=== PATIENT | female | born 1945 | race Caucasian/White ===

== ENCOUNTER 2024-02-06 16:27 | Emergency (ER) | payer MEDICARE, SELFPAY ==
[2024-02-06 16:29] VITALS: BP 114/90; PULSE 75; RESP 18; TEMP 35.5; O2SAT 97; BMI 24.3
--- NOTE | 2024-02-06 16:48 | EX.ED.DYSGE1 ---
HPI History of Present Illness Chief Complaint: Palpitations Informant: patient and spouse/S.O. Onset/Context/Timing Onset: Today Context: Sudden Onset Timing: Continuous Worsened by: Nothing Relieved by: Nothing Narrative Narrative: Patient had a colonoscopy done today at [facility] in [place]. Patient was told she was in atrial fibrillation and needed to go to the emergency department. Patient denies any prior history of atrial fibrillation. Patient denies any symptoms. Patient states she feels fine. Patient states she was told she needed an EKG and a blood test. Patient denies any chest pain or palpitations. Patient denies any shortness of breath or cough. Patient denies any nausea or vomiting. Patient denies any lightheadedness or dizziness. Patient states she does not know when she went into atrial fibrillation. Patient thinks that they told her her heart rhythm was irregular during the procedure. [facility] Medical History (Updated 02/06/24 @ 20:[address] Esvin Mendoza DO) Hypertension Allergy/AdvReac Type Severity Reaction Status Date / Time No Known Allergies Allergy Verified 02/06/24 16:28 Surgical History (Updated 02/06/24 @ 16:[address] Esvin Mendoza DO) Hx of total knee replacement Social History Smoking Status: Never smoker ROS ROS ED Constitutional Constitutional ED: Denies chills or fever(s) Eyes Eyes: Denies blurry vision or change in vision ENT ENT ED: Denies rhinorrhea or sore throat Cardiovascular Cardiovascular: Denies chest pain or palpitations Respiratory/Chest Respiratory/Chest: Denies cough or dyspnea Gastrointestinal Gastrointestinal: Denies nausea or vomiting Genitourinary Genitourinary ED: Denies dysuria or hematuria Musculoskeletal Musculoskeletal: Denies back pain or neck pain Integumentary Denies abscess or rash Neurologic Neurologic: Denies headache(s) or weakness Allergic/Immunologic Allergic/Immunologic ED: Denies mouth swelling or urticaria EXAM Physical Exam Const Vital Signs: 02/06/24 16:29 02/06/24 17:12 02/06/24 17:12 Temperature 96 F L Temperature Source Temporal Pulse Rate 75 Respiratory Rate 18 Respiratory Effort Normal Non-Labored Blood Pressure 114/90 H Blood Pressure Mean 98 Pulse Ox 97 96 Oxygen Delivery Method Room Air Room Air 02/06/24 18:28 Temperature Temperature Source Pulse Rate 68 Respiratory Rate Respiratory Effort Blood Pressure 107/72 Blood Pressure Mean 83 Pulse Ox Oxygen Delivery Method Positive well nourished and well developed General Appearance ED: well developed and NAD HEENT Reports moist mucous membranes Neck supple and no JVD Resp normal respiratory effort and clear to auscultation bilaterally Cardio regular rate Rhythm: abnormal rhythm irregularly irregular GI non-tender and non-distended Palpation: soft Extremity normal to inspection Neuro oriented x3, CN's II-XII intact bilaterally and no sensory deficits noted Sensorium / Orientation: alert Motor Exam: strength 5/5 throughout MDM MDM MDM Narrative Medical decision making narrative: Differential diagnose includes cardiac dysrhythmia, cardiac ischemia, electrolyte abnormality, dehydration, and viral illness. EKG will be obtained to assess for cardiac dysrhythmia and cardiac ischemia. Chest x-ray will be obtained to assess for cardiomegaly and congestive heart failure. CBC will be obtained to assess for leukocytosis and anemia. Basic metabolic profile will be obtained to assess for electrolyte abnormality and renal function. High-sensitivity troponin will be obtained to assess for cardiac ischemia. 2-hour repeat high-sensitivity troponin will be obtained to assess for ongoing cardiac ischemia. History & Record Review Additional record(s) reviewed:: No prior records and Other (Patient came with rhythm strips from the colonoscopy procedure which all showed atrial fibrillation.) Lab Data Attestation: I reviewed the patient's lab results. Lab results narrative: CBC was reviewed and was within normal limits. PT with INR and PTT were reviewed with her,. Pro time was 15.6 and INR was 1.2. PTT was normal. Basic metabolic profile was reviewed. Potassium slightly low at 3.2. Initial high-sensitivity troponin was reviewed and was normal at 10. 2-hour repeat high-sensitivity troponin was reviewed and was normal at 7. Labs: Laboratory Results - last 24 hr 02/06/24 02/06/24 16:52 19:05 WBC 7.4 RBC 4.22 Hgb 12.1 Hct 36.6 L MCV 86.7 MCH 28.7 MCHC 33.1 RDW Std Deviation 45.6 H RDW Coeff of Chavez 14.3 Plt Count 203 MPV 12.0 Immature Gran % (Auto) 0.300 Neut % (Auto) 76.1 H Lymph % (Auto) 13.3 L [place] % (Auto) 9.3 Eos % (Auto) 0.5 Baso % (Auto) 0.5 Absolute Neuts (auto) 5.7 Absolute Lymphs (auto) 0.99 Nucleated RBC % 0 PT 15.6 H INR 1.2 APTT 30.9 Sodium 137 Potassium 3.2 L Chloride 104 Carbon Dioxide 28.0 Anion Gap 5 BUN 13 Creatinine 1.01 Estim Creat Clear Calc 44.64 Est GFR (MDRD) Af Amer 68 Est GFR (MDRD) Non-Af 56 L BUN/Creatinine Ratio 12.9 Glucose 114 H Calcium 8.8 Troponin I High Sens 10 7 Radiography Chest X-Ray - ED: 2 View, Read by ED Physician, Read by Radiologist, No Acute Disease and Cardiomegaly Diagnostic Testing: Clinical Impression(s) from Imaging Studies Chest X-Ray 02/06/24 17:10 IMPRESSION: Cardiomegaly. Electronically Signed: Theresa Bryant MD at 17:31 EST , PA and lateral chest x-ray was obtained. There are 2 views. On my independent interpretation, lung salazar are clear. There is cardiomegaly. Bony thorax is normal. There is no acute process noted. Radiologist also interpreted the x-ray and agrees. EKG Initial EKG: Attestation: I personally reviewed and interpreted this EKG as follows: Interpretation: Atrial Fibrillation (70), RBBB and Non-Specific ST Changes Comments: EKG was obtained. On my independent interpretation, it shows atrial fibrillation with a rate of 70. QRS interval was slightly prolonged at 126 ms. QTc 473 ms. [place] was normal. There is a right bundle branch block pattern noted. There are nonspecific ST-T wave changes noted. There are no prior EKGs available for comparison. Prior EKG tracings: not available for review Prior: No Prior Treatment and Re-Evaluation :: Since the patient is asymptomatic and she does not know when she possibly started having the atrial fibrillation, I do not want to cardiovert the patient. Case was discussed with Dr. Abbott from cardiology. He recommended having the patient follow-up as an outpatient with her primary care physician. He did not want to start the patient on anticoagulation due to the biopsies from her colonoscopy. Patient was instructed to follow-up with her primary care physician in 3 to 5 days. Patient was instructed to return if worse in any way. Patient understood and was agreeable with the plan. All questions were answered. Discharge Plan Triage Chief Complaint: Palpitations ED Provider: Esvin Mendoza Dx/Rx/DC Orders Clinical Impression: Atrial fibrillation, Hypertension Instructions: ED Hypertension, Established Primary Care Provider: [facility],Out of Referrals: NOT,DEFINED [Non-Staff] - [facility],Out of [Primary Care Provider] - 3-5 Days Print Language: [place] Disposition Disposition: Home, Self Care
--- NOTE | 2024-02-06 16:56 | EKG12_ITS ---
Test Reason : Blood Pressure : */* mmHG Vent. Rate : 70 BPM Atrial Rate : * BPM P-R Int : * ms QRS Dur : 126 ms QT Int : 438 ms P-R-T Axes : * 7 -33 degrees QTcB Int : 473 ms Atrial fibrillation Right bundle branch block Cannot rule out Inferior infarct , age undetermined Abnormal ECG Confirmed by SAPNA AMBRIZ ([id number]), movie editor KAYA SWANN ([id number]) on 02/08/2024 11:56:47 AM Referred By: Esvin Mendoza Confirmed By: SAPNA AMBRIZ
--- NOTE | 2024-02-06 17:10 | RAD_ITS ---
INDICATION: chest pain EXAMINATION/TECHNIQUE: X-RAY - XR Chest 2 Views COMPARISON: No relevant prior comparison study available FINDINGS: LINES/DEVICES: None. LUNGS: No consolidation, edema or effusion. No pneumothorax. MEDIASTINUM AND CARDIOVASCULAR STRUCTURES: There is cardiomegaly. Central airways and mediastinal contour are unremarkable. BONES AND SOFT TISSUES: Unremarkable. RAD/Chest PA and Lateral IMPRESSION: Cardiomegaly. Electronically Signed: Theresa Bryant MD at 17:31 EST ,
[2024-02-06 17:12] VITALS: O2SAT 96
[2024-02-06 17:16] LABS: Absolute Lymphocyte Count 0.99 X10^3/uL (0.83-4.51); Absolute Neutrophil Count 5.7 X10^3/uL (2.0-7.7); Basophil# 0.04 X10^3/uL; Basophil% 0.5 % (0-1); Eosinophil# 0.04 X10^3/uL; Eosinophils% 0.5 % (0-5); Hematocrit 36.6 % (37-47); Hemoglobin 12.1 g/dL (12.0-15.0); Lymphocyte # 0.99 X10^3/ul (0.83-4.51); Lymphocyte % 13.3 % (19-41); Mean Corp Hgb Conc 33.1 g/dL (32-36); Mean Corpuscular Hgb 28.7 pg (27.0-32.0); Mean Corpuscular Volume 86.7 fL (81-99); Monocyte# 0.69 X10^3/uL; Monocyte% 9.3 % (0-10); NRBC Flagged by Analyzer 0 % (0-5); Neutrophil # 5.65 X10^3/uL (2.7-7.7); Neutrophil % 76.1 % (47-70); Platelet Count 203 K/mm3 (150-450); RBC Distribution Width CV 14.3 % (11.6-14.6); RBC Distribution Width SD 45.6 fl (35.1-43.9); Red Blood Count 4.22 M/mm3 (4.2-5.4); White Blood Count 7.4 K/mm3 (4.4-11.0)
[2024-02-06 17:25] LABS: International Normalized Ratio 1.2; Prothrombin Time (Protime)PT. 15.6 SECONDS (11.7-14.9)
[2024-02-06 17:26] LABS: Partial Thromboplast Time 30.9 Seconds (24.1-36.2)
[2024-02-06 17:32] LABS: Anion Gap 5 (5-15); BUN 13 mg/dL (7-18); BUN/Creat Ratio 12.9 RATIO (10-20); Calcium,Total 8.8 mg/dL (8.5-10.1); Chloride 104 mmol/L (98-107); Creatinine, Serum 1.01 mg/dL (0.55-1.02); EST Glomerular Filtration Rate 56 mL/min (>60); Est Glom Filt Rate - Afr Amer 68 mL/min (>60); Estimated Creatinine Clearance 44.64 ml/min; Glucose 114 mg/dL (74-106); Potassium 3.2 mmol/L (3.5-5.1); Sodium Level 137 mmol/L (136-145); Troponin-I HS (w/2H Reflex) 10 pg/mL (3.0-54.0)
[2024-02-06] MEDS: Potassium Chloride Oral Tablet 20 MEQ 40 MEQ PO (18:01)
[2024-02-06 18:28] VITALS: BP 107/72; PULSE 68
[2024-02-06 19:06] LABS: Reflex Troponin-HS? (from REC) Y
[2024-02-06 19:38] LABS: Troponin-I HS 7 pg/mL (3.0-54.0)
[2024-02-06 20:00] VITALS: BP 130/90; PULSE 78; RESP 20; O2SAT 96
[2024-02-06 21:06] VITALS: BP 124/74; PULSE 71; RESP 16; TEMP 36.8; O2SAT 97
== END 2024-02-06 21:07 | disposition home or self-care (01) ==
PROVIDERS: Emergency Provider Emergency Medicine; Referring Provider Emergency Medicine; Visit Provider Emergency Medicine
DX: R00.2 Palpitations (principal); I48.91 Unspecified atrial fibrillation; I10 Essential (primary) hypertension; Z96.659 Presence of unspecified artificial knee joint
CPT/HCPCS: 71046; 80048; 84484; 85025; 85610; 85730; 93005; 99284; J7040; A4216

== ENCOUNTER 2024-09-10 15:39 | Emergency (ER) | payer MEDICARE, SELFPAY ==
[2024-09-10] VITALS (16 sets, daily range): BP systolic 100–143; BP diastolic 50–101; PULSE 69–100; RESP 12–26; TEMP 36.9; O2SAT 95–100; BMI 25.0
--- NOTE | 2024-09-10 15:52 | CT_ITS ---
PROCEDURE: CTA CHEST W/WO CONTRAST 09/10/2024 REASON FOR EXAM: ASCENDING AORTIC ANEURYSM per echocardiogram today. Patient report, no chest pain or shortness of breath. History of atrial fibrillation and hypertension. TECHNIQUE: CTA CHEST W/WO CONTRAST Multiplanar Sagittal and Coronal images were obtained. 3D post processing was performed CONTRAST: Isovue 370 VOLUME: 100 mL One or more dose reduction techniques were used (e.g., Automated exposure control, adjustment of the mA and/or kV according to patient size, use of iterative reconstruction technique). RADIATION DOSE SUMMARY: DLP: 270 mGycm COMPARISON: Chest radiograph 02/06/24. FINDINGS: Hardware: None. Lymph nodes: No axillary, mediastinal or hilar lymphadenopathy. Heart: Dilation of the right and left atria. No pericardial effusion. There is a Marble type A limited intimal tear of the ascending thoracic aorta measuring approximately 5.1 cm on coronal imaging. There is no aortic root involvement. The coronary arteries and aortic arch vessels are grossly well-perfused. Visualization of intramural hematoma is limited without noncontrast imaging. Lungs and Airways: The central airways are patent. Bibasilar atelectasis, [id number]. No pleural effusion or pneumothorax. Upper Abdomen: Small hiatal hernia. Large calcified stones within the gallbladder. Bilateral renal cysts. Mild ectasia of the visualized branches of the abdominal aorta without aneurysm or filling defect. Bones: Thoracic spondylosis. CT/CTA Chest W/WO Contrast IMPRESSION: 1. Limited visualization due to imaging technique. No obvious acute intrathora cic finding. 2. Chronic appearing Leno type A limited intimal tear of the ascending thor acic aorta, given lack of patient's symptoms, prior chest radiograph imaging appearance and dilation of the atria. Continue routine surveillance. Reading Location: [id number]
--- NOTE | 2024-09-10 15:52 | ED.RN ---
This Rn walked into Dr. office after getting pt. in room and placing her on monitor. I showed Dr. Horvath her chart and stated Dr. piña wants this pt. evaluated for potentialk dissection, she needs to be seen RONALDO.
[2024-09-10] MEDS: 0.9% Normal Saline (1000mL) 1,000 ML 1000 ML IV (15:59)
--- NOTE | 2024-09-10 16:10 | ED.VIS.CHEST ---
HPI History of Present Illness Chief Complaint: Chest Other Narrative Narrative: Chief complaint and HPI: Asymptomatic aortic aneurysm. 79-year-old female with past medical history of HTN, atrial fibrillation on Eliquis presents from cardiology office for asymptomatic aortic aneurysm. Patient had a follow-up appointment with cardiology today for her atrial fibrillation. She had an echocardiogram that showed normal LV size with an EF of 55%. The ascending aorta is severely dilated at 7 cm. Systems Librarian called [facility] cardiothoracic surgery who recommended transfer for repair. Patient denies any fever, chills, shortness of breath, abdominal pain, nausea, vomiting. She denies any history of tobacco abuse. Review of systems: See HPI Medications: As listed on the chart Allergies: As listed on the chart PFSH: Per chart Vital signs: As listed on the chart. Reviewed. Physical exam: Gen: A&O x3, NAD Head: Normocephalic, atraumatic Eyes: No sclera icterus, conjunctiva clear ENT: Moist mucous membranes Neck: Trachea midline, No JVD CV: Regular rate, irregular rhythm, no murmurs, no peripheral edema Resp: Lungs CTA BL, no w/r/c GI: Abd soft, non-distended, non-tender, no r/r/g Musc: Full ROM, no deformity Skin: Warm, dry Neuro: Alert, oriented, grossly intact, sensation intact Psych: Cooperative, appropriate mood and affect [facility] Medical History (Updated 08/01/24 @ 10:[address] Pete Abbott MD) Atrial fibrillation Cardiomegaly Panic attack SUBHA (generalized anxiety disorder) Depression Arthritis RBBB Hypertension Home Medications ?Medication ?Instructions ?Recorded ?Last Taken ?Type alprazolam 2 mg tablet 2 mg PO BID 07/07/24 Unknown History apixaban 5 mg tablet (Eliquis) 5 mg PO BID 07/07/24 Unknown History cholecalciferol (vitamin D3) 50 50 mcg PO QDAY 07/07/24 Unknown History mcg (2,000 unit) capsule fluticasone propionate 50 1 spray intranasal DAILY 07/07/24 Unknown History mcg/actuation nasal spray,suspension paroxetine HCl 10 mg tablet 10 mg PO DAILY 07/07/24 Unknown History trandolapril 4 mg tablet 4 mg PO DAILY 07/07/24 Unknown History verapamil 240 mg tablet,extended 240 mg PO BID 07/07/24 Unknown History release Allergy/AdvReac Type Severity Reaction Status Date / Time No Known Allergies Allergy Verified 09/10/24 15:44 Surgical History Hx of total knee replacement Social History Smoking Status: Never smoker alcohol intake: never substance use type: does not use EXAM Physical Exam Const Vital Signs: 09/10/24 15:39 09/10/24 15:39 09/10/24 16:09 Temperature 98.4 F Temperature Source Temporal Pulse Rate 69 88 Respiratory Rate 15 14 Respiratory Effort Normal Non-Labored Blood Pressure 136/93 H 138/93 H Blood Pressure Mean 107 108 Pulse Ox 97 98 Oxygen Delivery Method Room Air Room Air 09/10/24 16:30 09/10/24 17:00 09/10/24 17:30 Temperature Temperature Source Pulse Rate 90 97 99 Respiratory Rate 26 H 15 16 Respiratory Effort Blood Pressure 143/101 H 134/89 H Blood Pressure Mean 115 104 Pulse Ox 100 95 96 Oxygen Delivery Method 09/10/24 18:00 09/10/24 18:30 09/10/24 19:00 Temperature Temperature Source Pulse Rate 100 95 90 Respiratory Rate 23 H 22 H 13 Respiratory Effort Blood Pressure 119/96 H 122/88 H 128/77 H Blood Pressure Mean 103 99 94 Pulse Ox 97 95 95 Oxygen Delivery Method Room Air Room Air 09/10/24 19:30 Temperature Temperature Source Pulse Rate 90 Respiratory Rate 12 Respiratory Effort Blood Pressure 126/90 H Blood Pressure Mean 102 Pulse Ox 95 Oxygen Delivery Method Room Air MDM MDM MDM Narrative Medical decision making narrative: 79-year-old female with past medical history of HTN, atrial fibrillation on Eliquis presents from cardiology office for asymptomatic aortic aneurysm. Patient had a follow-up appointment with cardiology today for her atrial fibrillation. She had an echocardiogram that showed normal LV size with an EF of 55%. The ascending aorta is severely dilated at 7 cm. Systems Librarian called [facility] cardiothoracic surgery who recommended transfer for repair. I personally reviewed the echocardiogram. I personally spoke to Dr. Abbott, who is the private secretary that saw the patient in office today. Basic labs ordered with coagulation studies and CTA chest to better assess aneurysm. [facility] transfer line contacted for transfer. Differential diagnosis includes but is not limited to asymptomatic ascending aneurysm, aneurysm dissection. EKG reviewed see below. CBC without leukocytosis or anemia. Platelets unremarkable. INR unremarkable. BMP unremarkable. CTA chest pending. I spoke with the cardiovascular medicine team at [facility]. Dr. Matias accepted admission. Patient will be transferred once bed is available. CTA chest was personally reviewed by myself as well as cardiology Dr. Abbott concern is for dissection. I did try to personally call the radiologist to read the imaging as well as get his opinion however I was unable to get a hold of him. I reached out to our radiology department. They tried to reach out to radiologist as well. Given concern for dissection, [facility] transfer line was recontacted and patient was discussed with cardiothoracic surgeon and critical care team. 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 No need for flight team. Patient will remain a level 1 transfer per them. Monitor for symptoms and blood pressure. Patient was updated of the results as well as the family. CTA chest shows dilation of the right and left atria. No pericardial effusion. There is a Roslyn type A limited intimal tear of the ascending thoracic aorta measuring approximately 5.1 cm. There is no aortic root involvement. Coronary arteries grossly well-perfused. Chronic appearing. Patient will be monitored closely in our emergency department until bed is obtained. EKG: Interpreted by me/EM physician: EKG shows atrial fibrillation with known right bundle branch block. Heart rate 74. Impression: 1. 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 measuring approximately 5.1 cm Lab Data Labs: Laboratory Results - last 24 hr 09/10/24 15:44 WBC 8.4 RBC 5.00 Hgb 14.3 Hct 42.9 MCV 85.8 MCH 28.6 MCHC 33.3 RDW Std Deviation 44.6 H RDW Coeff of Chavez 14.2 Plt Count 221 MPV 12.4 H Immature Gran % (Auto) 0.400 Neut % (Auto) 72.0 H Lymph % (Auto) 17.4 L [place] % (Auto) 8.6 Eos % (Auto) 1.1 Baso % (Auto) 0.5 Absolute Neuts (auto) 6.1 Absolute Lymphs (auto) 1.47 Nucleated RBC % 0 PT 16.4 H INR 1.3 APTT 34.5 Sodium 138 Potassium 4.4 Chloride 101 Carbon Dioxide 25.7 Anion Gap 11 BUN 18 Creatinine 0.98 Estim Creat Clear Calc 45.27 L Est GFR (MDRD) Non-Af 59 L BUN/Creatinine Ratio 18.7 Glucose 89 Calcium 9.4 Radiography Diagnostic Testing: Clinical Impression(s) from Imaging Studies Chest CTA 09/10/24 15:52 IMPRESSION: 1. Limited visualization due to imaging technique. No obvious acute intrathoracic finding. 2. Chronic appearing Roslyn type A limited intimal tear of the ascending thoracic aorta, given lack of patient's symptoms, prior chest radiograph imaging appearance and dilation of the atria. Continue routine surveillance. Reading Location: [id number] Discharge Plan Triage Chief Complaint: Chest Other ED Provider: Maverick Mckeon Dx/Rx/DC Orders Prescriptions: No Action alprazolam 2 mg tablet 2 mg PO BID Eliquis 5 mg tablet 5 mg PO BID fluticasone propionate 50 mcg/actuation spray,suspension 1 spray intranasal DAILY paroxetine HCl 10 mg tablet 10 mg PO DAILY trandolapril 4 mg tablet 4 mg PO DAILY verapamil 240 mg tablet extended release 240 mg PO BID cholecalciferol (vitamin D3) 50 mcg (2,000 unit) capsule 50 mcg PO QDAY Primary Care Provider: Monica Mckeon Referrals: Monica Mckeon MD [Primary Care Provider] - Print Language: Georgian
[2024-09-10 16:31] LABS: Absolute Lymphocyte Count 1.47 X10^3/uL (0.83-4.51); Absolute Neutrophil Count 6.1 X10^3/uL (2.0-7.7); Basophil# 0.04 X10^3/uL; Basophil% 0.5 % (0-1); Eosinophil# 0.09 X10^3/uL; Eosinophils% 1.1 % (0-5); Hematocrit 42.9 % (37-47); Hemoglobin 14.3 g/dL (12.0-15.0); Lymphocyte # 1.47 X10^3/ul (0.83-4.51); Lymphocyte % 17.4 % (19-41); Mean Corp Hgb Conc 33.3 g/dL (32-36); Mean Corpuscular Hgb 28.6 pg (27.0-32.0); Mean Corpuscular Volume 85.8 fL (81-99); Mean Platelet Vol. 12.4 fl (6.2-12.0); Monocyte# 0.73 X10^3/uL; Monocyte% 8.6 % (0-10); NRBC Flagged by Analyzer 0 % (0-5); Neutrophil # 6.08 X10^3/uL (2.7-7.7); Platelet Count 221 K/mm3 (150-450); RBC Distribution Width CV 14.2 % (11.6-14.6); RBC Distribution Width SD 44.6 fl (35.1-43.9); White Blood Count 8.4 K/mm3 (4.4-11.0)
[2024-09-10 16:52] LABS: Anion Gap 11 (5-15); BUN 18 mg/dL (4-19); BUN/Creat Ratio 18.7 RATIO (10-20); Calcium,Total 9.4 mg/dL (7.6-11.0); Carbon Dioxide 25.7 mmol/L (21.0-32.0); Chloride 101 mmol/L (98-108); Creatinine, Serum 0.98 mg/dL (0.70-1.20); EST Glomerular Filtration Rate 59 (>60); Estimated Creatinine Clearance 45.27 ml/min (50-250); Glucose 89 mg/dL (70-99); Potassium 4.4 mmol/L (3.3-5.1); Sodium Level 138 mmol/L (133-145)
[2024-09-10 16:55] LABS: International Normalized Ratio 1.3; Prothrombin Time (Protime)PT. 16.4 SECONDS (11.7-14.9)
[2024-09-10 16:56] LABS: Partial Thromboplast Time 34.5 Seconds (24.1-36.2)
[2024-09-10] MEDS: Lorazepam 2 MG/ML WCH Syringe 0.5 MG IV (20:34)
--- NOTE | 2024-09-10 20:50 | ED.RN ---
[facility] called, brief report given, per Dr. Horvath pt is to go critical care transport, [facility] notified of same, they will call back with ETA and bed assignment.
--- NOTE | 2024-09-10 23:01 | ED.RN ---
report called to Demetra BHATIA @ [facility] [place]
== END 2024-09-10 22:58 | disposition short-term general hospital (02) ==
PROVIDERS: Emergency Provider Surgery; PCP Family Medicine; Visit Provider Surgery
DX: I77.810 Thoracic aortic ectasia (principal); I48.91 Unspecified atrial fibrillation; I10 Essential (primary) hypertension; Z79.01 Long term (current) use of anticoagulants; F32.A Depression, unspecified; F41.1 Generalized anxiety disorder
CPT/HCPCS: 71275; 80048; 85025; 85610; 85730; 93005; 96361; 96374; 99285; Q9967; A4216

== ENCOUNTER → 2024-09-10 | Outpatient (CLI) | payer MEDICARE, SELFPAY ==
--- NOTE | 2024-09-10 13:39 | ECHOD_ITS ---
Reason For Study : New A fib Left Ventricle Normal LV size. The left ventricular ejection fraction is 55 %. No regional wall motion abnormalities noted. Right Ventricle Normal RV size. Normal systolic function. Atria The left atrium is severely enlarged. The right atrium is mildly enlarged. Tricuspid Valve Normal tricuspid valve. Mild (1+) tricuspid valve insufficiency. Pulmonary artery systolic pressure is 35 mmHg. Aortic Valve Trisinus/trileaflet aortic valve. Mild (1+) aortic valve insufficiency. Pulmonic Valve Normal pulmonic valve. Great Vessels Normal aortic root. The sinus of valsalva is normal size. The ascending aorta is severely dilated. The ascending aorta is dilated, measuring 7 cm cm. The pulmonary artery is normal size. Inferior vena cava collapse with respiration. Pericardium/Pleural No pericardial effusion. MMode/2D Measurements & Calculations LVIDd: 3.5 cm IVSd: 1.1 cm Ao root diam: 6.1 cm LVIDs: 2.3 cm LVPWd: 1.1 cm RVDd: 4.3 cm FS: 34.6 % asc Aorta Diam: 6.9 cm LAV(MOD-bp): 98.4 ml LVAd ap4: 21.9 cm2 LAV(MOD-bp) Indexed: 54.2 ml/m2 LVLd ap4: 7.2 cm LAV(MOD-sp2): 94.8 ml EDV(MOD-sp4): 57.4 ml LAV(MOD-sp4): 91.8 ml EDV(sp4-el): 56.8 ml LVAs ap4: 14.3 cm2 LVLs ap4: 6.3 cm ESV(MOD-sp4): 28.6 ml ESV(sp4-el): 27.4 ml EF(MOD-sp4): 50.2 % EF(sp4-el): 51.9 % SV(MOD-sp4): 28.8 ml SV(MOD-sp2): 28.6 ml LVAd ap2: 21.1 cm2 LVLd ap2: 6.4 cm SI(MOD-sp4): 15.9 ml/m2 SI(MOD-sp2): 15.8 ml/m2 EDV(MOD-sp2): 61.1 ml EDV(sp2-el): 59.1 ml LVAs ap2: 15.3 cm2 LVLs ap2: 5.9 cm ESV(MOD-sp2): 32.4 ml ESV(sp2-el): 33.2 ml EF(MOD-sp2): 46.9 % SV(sp4-el): 29.5 ml LA A4 area: 28.6 cm2 RA A4 area: 23.4 cm2 TAPSE: 2.2 cm Doppler Measurements & Calculations MV E max nelson: 114.6 cm/sec Ao V2 max: 150.1 cm/sec AI max nelson: 422.8 cm/sec Ao max P.0 mmHg AI max P.5 mmHg Ao V2 mean: 107.9 cm/sec Ao mean P.3 mmHg AI dec slope: 212.5 cm/sec2 Ao V2 VTI: 28.9 cm AI P1/2t: 582.7 msec AV (velocity ratio): 0.54 LV V1 max: 83.8 cm/sec PA V2 max: 73.8 cm/sec TR max nelson: 281.8 cm/sec LV V1 max P.8 mmHg TR max P.8 mmHg LV V1 mean P.5 mmHg LV V1 mean: 57.6 cm/sec LV V1 VTI: 15.6 cm ECHO/Echo Complete Interpretation Summary The left ventricular ejection fraction is 55 %. Normal LV size. Normal RV size. Normal systolic function. The ascending aorta is severely dilated. The ascending aorta is dilated, measuring 7 cm cm. Trisinus/trileaflet aortic valve. Mild (1+) aortic valve insufficiency. The left atrium is severely enlarged. The right atrium is mildly enlarged. Ordering Physician: Pete Abbott Referring Physician: Pete Abbott Performed By: Maverick Reid RCS
== END | disposition home or self-care (01) ==
PROVIDERS: PCP Family Medicine; Referring Provider Internal Medicine Cardiovascular Disease; Visit Provider Internal Medicine Cardiovascular Disease
DX: I48.91 Unspecified atrial fibrillation (principal); R94.31 Abnormal electrocardiogram [ECG] [EKG]; R06.02 Shortness of breath
CPT/HCPCS: 93306

== ENCOUNTER → 2024-11-12 | Outpatient (CLI) | payer MEDICARE, SELFPAY ==
--- NOTE | 2024-11-12 14:03 | CR.HP_ITS ---
CR - History & Physical General Arrival date:: 11/12/24 Arrival time:: 13:50 Date of Referral:: 10/31/24 Date of CR Evaluation:: 11/12/24 Referring Physician: Dr Abbott Primary Diagnosis: Valve Repair History of Present Cardiac Event Onset Date Current stable Angina Pectoris:: No Acute Myocardial Infarction within 12 months:: No Coronary Artery Bypass Graft:: No Heart valve replacement or repair:: Yes PTCA or coronary stenting:: No Heart or Heart-Lung Transplant:: No Heart Failure EF <35%:: No Type of Symptoms:: Valve Repair Medications Ambulatory Orders ?Medication ?Instructions ?Recorded apixaban 5 mg tablet (Eliquis) 5 mg PO BID 07/07/24 cholecalciferol (vitamin D3) 50 50 mcg PO QDAY 5 mcg (2,000 unit) capsule fluticasone propionate 50 1 spray intranasal DAILY mcg/actuation nasal spray,suspension paroxetine HCl 10 mg tablet 10 mg PO DAILY 07/07/24 alprazolam 2 mg tablet 0.5 mg PO BID PRN 10/31/24 metoprolol succinate 25 mg 25 mg PO QDAY 10/31/24 tablet,extended release 24 hr Allergies Allergies No Known Allergies Allergy (Verified 10/31/24 11:23) Sleep Disorder Evaluation Hx of Sleep Apnea: No Do you snore loudly (louder than talking or can be heard through closed doors)?: No Do you often feel tired/ fatigued/ sleepy during daytime?: No Has anyone observed you stop breathing during sleep?: No History of Hypertension (for STOP score): Yes STOP Results: Negative Advance Directives Advanced Directives Advance Directives: Yes Living Will Living Will: Yes Power of Service Establishment Attendant, Durable Power of Service Establishment Attendant for Healthcare: Yes Able to identify name of POA?: Yes Name of Medical Power of Service Establishment Attendant: Allyn (daughter) Information Education/Medical Records Advanced Care Planning Booklet Provided: Patient Declined Advance Directives on File: No Request family telephone claims representative bring in a Copy: Yes Reason not requested: Family not present Advanced Directives Advanced Directives Do you have a Healthcare Power of Service Establishment Attendant?: Yes Living Will: Yes Advance Directives on File: No Past Medical History Covid-19 Screening Physicial Symptoms Fever: No Unexplained muscle aches: No Current respiratory symptoms: No Upper respiratory infections symptoms: No Gastro-intestinal symptoms: No Icg-Uaqh-Sacjfc symptoms: No Other Clinical Concerns Has tested positive for COVID-19 in last 30 days: No Exposure Risk Had contact w/person w/symptoms or Covid-19 (+) last 14 days: No Has High Risk Exposures ID'd by Health dept/Inf Control team: No Pertinent Comorbidities 65 years or older:: Yes Lives in Assisted Living facility:: No Has a chronic lung disease or moderate to severe asthma:: No Has a serious heart condition:: No Immunocompromised:: No Severely obese (Body Mass Index of 40 or higher):: No Diabetic:: No Has chronic kidney disease undergoing dialysis:: No Has liver disease:: No Past Medical Illness Past Medical History (Updated 10/31/24 @ 11:53 by Yelena Grewal RN) Aortic aneurysm without rupture I71.9 Atrial fibrillation I48.91 Cardiomegaly I51.7 Panic attack F41.0 SUBHA (generalized anxiety disorder) F41.1 Depression F32.A Arthritis M19.90 RBBB I45.10 Hypertension I10 Past Surgical History Past Surgical History (Updated 10/31/24 @ 14:[address] 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 Bilateral Review of Systems Pain Is Patient Pain Free?: Yes Pain Location: none Risk Factor Assessment Vital Signs Respiratory Rate: 18 Pulse Ox: 96 Blood Pressure: 126/78 Nailbeds:: Normal Pulse Pulse Rate: 74 Pulse Rhythm: Irregular (known A fib) Diabetes Nutrition Referral for Diabetes: No Obesity Height: 5 ft 7.5 in Weight:: 146 lb Weight in Pounds: 146.0 lbs Weight Source: Stated by Patient Body Mass Index (BMI): 22.5 Risk Stratification Risk Guidelines: Lowest Risk: Risk Factor for Hypertension and Risk Factor for Sedentary Lifestyle and Moderate Risk: Risk Factor for Depression For Smoking Smoking Risk Guidelines For Dyslipidemia Dyslipidemia Risk Guidelines For Diabetes Mellitus Diabetes Risk Guidelines For Obesity/Overweight Obesity/Overweight Risk Guidelines For Hypertension Hypertension Risk Guidelines For Sedentary Lifestyle Sedentary Lifestyle Risk Guidelines For Depression Depression Risk Guidelines Social History Smoking History Smoking Status: Never smoker Alcohol Use Alcohol Usage: No Substance Abuse Hx Substance Use: No Occupation Occupation (List type of work in comments):: Retired Social Environment Current Living Arrangements Living Environment:: Spouse Children How many children do you have?: 4 Do any of your children live nearby?: Yes Safety Do you feel safe in your surroundings?: Yes Assistance Do you need any assistance at home?: No Nutrition Survey Nutrition Survey Instructions Scoring Instructions Nutrition Survey Initial: Have you lost >10 lbs over the past 2 months without trying?: Yes Are you following a special diet at home for diabetes, low fat, or low salt?: Yes Are you interested in meeting with a dietitian for help understanding your diet?: Yes Do you eat less than 3 meals a day?: Yes Do you eat fatty meats (garcia, sausage, ribs, etc), fried foods, desserts, large amounts of salad dressings, margarine, butter, or cheese most days?: Yes Do you have food allergies? [Enter types in comment field]: No Do you eat in restaurants more than 3 times a week?: No Do you season food with salt, seasoning salt, or garlic salt?: No Do you used canned, boxed, frozen meals, or soups, seasoning packets?: Yes Total Score:: 6 Self-Efficacy 6-Item Scale Initial Assessment: We would like to know how confident you are in doing certain activities. Please select your confidence level for: Fatigue Select Number: 5 Physical Discomfort or Pain Select Number: 5 Emotional Distress Select Number: 5 Other Symptoms or Health Problems Select Number: 5 Different Tasks and Activities Select Number: 5 Medication Select Number: 5 Total Score:: 5
[2024-11-12 14:34] VITALS: BMI 22.5
[2024-11-12 15:17] VITALS: BP 126/78; PULSE 74; RESP 18; O2SAT 96
--- NOTE | 2024-11-12 15:18 | CR.ITP_ITS ---
Diagnosis General Information Admitting Diagnosis: Valve Repair Barriers to Learning: No Barriers Stage of change r/t lifestyle modifications:: Action Gave educational material for:: Treating Heart Disease, How The Heart Works, What it means to have Heart Disease, How Coronary Artery Disease is Diagnosed, Heart Procedures, What Heart Medications Do, Risk Factors & Modifications, Living an Active Life, Nutrition, Emotions & Heart Disease, Stress Management & Relaxation and Sleep Disorders & Heart Disease Education/Goals Individual Counseling: Initial Assessment: Stress Cardiac Rehabilitation Goals Personal Goals: Initial Assessment: Improve management of stress and emotions, Improve energy level, Participate in home exercise program, Get back to work, or to resume activities faster, Improve knowledge of cardiac disease, Improve muscle strength and endurance, Improve diet and eating habits (eat healthier) and Control risk factors (learn risk factor modification) Scale for measuring improvement of personal goals Diagnosis & Disease Process Outcomes/Goals: Pt IDs own risk factors & lifestyle modifications by Session 10, Verbalizes symptoms of angina & response by session 3. and Pt independently manages Plan/Interventions: Assist Pt to ID & engage in lifestyle modification to reduce CVD risk, Instruct on individual risk factors, Review symptoms of angina & emergency actions and Review secondary diagnosis & identify educational needs. 30 day Reassessments:: Not Met Safety Referral to Physical Therapy: No Referral to [facility] Case Management: No Fall Risk Assessed:: Yes Assistive Devices:: None Exercise - Initial Assessment Visit Date of Eval: 11/12/24 (initial evaluation) Mets: Pre-: >5 METS for 30 minutes by discharge Physician Prescribed Exercise Modalities: Treadmill, Rower, Schwinn Airdyne AD-7, [employer] Stepper, [employer] Pro- II Ergometer and [employer] Lateral Leather Toggler Frequency: 3x/week for 12 weeks [36 sessions] Intensity: 60-80% of age predicted maximum heart rate reserve Duration: 30 - 45 minutes METs - Progression 0.5-1.0 weekly:: 0.5-1.0 Current METSs:: 3 Target Heart Rate:: 85-106 Target RPE 12-16:: 12-16 EKG Type: A Fib Current Physical Activity or Exercising minutes: 30-45 Outcomes & Goals Goals:: Verbalizes understanding of THR, RPE & goal METS by session 6, Documents in home exercise log/reports 30 min aerobic 5 day/wk by DC and Demonstrates accurate pulse taking by DC Intervention & Plan Exercise Program Goals: Instruct on personal THR & RPE, Instruct on MET level & personal MET goal, Show patient to take own pulse /validate performance until accurate and Instruct on home exercise Physical Activity Home Exercise Physical Activity - Home Exercise: Safe Exercise, Warm-up, Self-monitoring, Cool-Down, Home Exercise > 30 min Daily and Sitting Time <3 hours/daily Outcomes & Goals Outcomes/Goals: Demonstrates correct Warm-up/exercise Cool-Down (S3) if = 2.5 METs, Verbalizes symptoms of exercise intolerance by Session 3 (S3) and Demonstrate safe equipment use (S3) & follows exercise prescrition (6) Intervention & Plan Plan/Intervention: Instruct warm-up & cool-down if exercising at > 2 METs, Instruct on symptoms of exercise intolerance & actions to take, Instruct & monitor on saf and Assess intial functional capacity & safety risk Nutrition - Initial Assessment Program Goals Nutrition Program Goals Patient has diagnosis of Hyperlipidemia (ICD E78)?: No Cholesterol/Lipids (Other Core Measures) Determine presence & major risk factors that modify LDL goal: Cigarette smoking, Hypertension or hypertensive medication, Low HDL cholesterol <40 mg/dL*, Family history of premature CHD in Male < 55 years: female <65 yearsFa and Age men > 45 years; women >/= 55 years Outcomes/Goals: Pt IDs own risk factors & lifestyle modifications by Session 10, Verbalizes symptoms of angina & response by session 3. and Pt independently manages Intervention/Plan: Advocate for lipid panel cholesterol medication if applicable, Instruct on personal lipid levels & lipid goals/NCEP guidelines and Instruct on cholesterol Referral to dietitian:: No Diabetes (Other Core Measures) Diabetes Type: Not Applicable Weight Mgt (Other Care) Height: 5 ft 7.5 in Weight:: 146 lb BMI: 22.5 BMI (Report if calculated above): 22 Diagnosis Overweight/Obesity BMI> 30% ICD-10 E66: No Diagnosis High BMI/Morbid Obesity BMI> 35% ICD-10 Z68: No Outcomes/Goals: Pt sets, maintains & shows weight loss goal & trend during rehab Intervention/Plan: Instruct on ideal BMI & set weight loss goal w/patient, Assist pt to ID & incorporate diet changes for weight loss by S9, Refer to Structured Weight Loss program as appropriate and Encourage goal of using 250- 300dcal per session for weight loss Healthy Eating Habits Will attend diet classes:: Yes Outcomes/Goals:: Consume diet rich in vegs,fruits,whole grain/high fiber,fish,lean meat and Limit sat/trans fats,cholesterol & added salts & sugars Intervention/Plan:: Assess current eating habits Education Gave educational materials for:: Signs & symptoms of hypoglycemia, Signs & symptoms of hyperglycemia, Relate diabetes to coronary artery disease and Healthy eating Core - Initial Assessment Visit Date of Eval: 11/12/24 (initial evaluation) Medication Compliance Preventative Medication(s):: Beta josh and Eliquis H/O mental health issues: depression, anxiety, or addiction?: Yes Doesn?t believe in the benefits of treatment?: No Believes medications are unnecessary or harmful?: No Has a concern about medication side effects?: No Expresses concern over the cost of medications?: No Outcomes/Goals: Verbalizes medications,desired effect & common side effects @ DC, Pt self-reports following medication regimen and Keeps card in wallet w/medications listed by DC Interventions/plans: Instruct on medication effects & side effects, Review medication list w/patient every two weeks and Instruct importance of taking meds as ordered & assist problem solving Tobacco Use Tobacco Use: Non-smoker Hypertension Hypertension Diagnosis:: Hypertension ICD-10 I10 Resting Blood Pressure:: 126/78 [place] [employer] Hypertension Guidelines Outcomes/Goals: Able to verbalize/achieve optimal blood pressure <130/80 and Incorporates diet changes & exercise for blood pressure control by DC Interventions/plan: Instruct on optimal blood pressure, hypertension & medications and Instruct on effects of sodium, alcohol, stress, exercise &hypertension Tobacco Cessation Referral Smoking Cessation Referral:: No Individual Education/Counseling:: Yes Education Schedule Given:: Yes Psychosocial - Initial Assess VIsit Date of Eval: 11/12/24 (initial evaluation) History of previous Mental disease:: Yes History of Emotional Disorders: Anxious and Depression Self-reported stressors Other/Comments:: Pt reports she is currently working with here PCP transition back to her normal medications prior to surgery. Pt denies any psychosocial needs at this time. Target Goals Target Goals Psychosocial Test Tool Used:: PHQ-9 Questionnaire phq-9 Severity See PHQ-9 Score: 8 Referral to Behavioral Health PS - Interventions: Yes: Referral to [facility] (Pt provided list of mental health resources in the area ) and Yes: Attend Stress Management Classes and No: Referral to Physician if PHQ-9 if score is 5-9: (Already working with her PCP in managing her mental health medications ) Outcomes/Goals: See list Psychosocial Outcomes/Goals:: ID's personal stressors & 2 strategies to manage stress by discharge Intervention/Plan: See List Interventions/Plan:: Assess stressors,coping strategies & signs of derpression on admission, Instruct/assist pt to develop coping & personal stress Mgt strategies, Refer to Behavioral Health if appropriate, Refer to Physician if appropriate, Instruct patient to recognize signs & symptoms of depression and Instruct patient to recog Patient Health Questionnaire PHQ-9 Screening Initial Assessment: 1. Little interest or pleasure in doing things: Several days 2. Feeling down, depressed, or hopeless: Several days 3. Trouble falling or staying asleep, or sleeping too much: Several days 4. Feeling tired or having little energy: Several days 5. Poor appetite or overeating: Several days 6. Feeling bad about yourself -- or that you are a failure or have let yourself or your family down: Several days 7. Trouble concentrating on things, such as reading the newspaper or watching television: Several days 8. Moving or speaking so slowly that other people could have noticed. Or the opposite - being so fidgety or restless that you have been moving around a lot more than usual: Several days 9. Thoughts that you would be better off , or of hurting yourself in some way: Not at all How difficult have these problems made it for you to do your work, take care of things at home, or get along with other people?: Somewhat difficult Total Score: 8 DAVID-Q SV Test Statements CAD is a disease of the arteries in the heart: False Examples of risk factors for heart disease: True Angina is chest pain or discomfort: True The benefits of resistance training include: True Eating more meat and dairy products: False Anti-platelet medications such as aspirin are important: True The only effective way to manage stress: False An exercise warm-up slowly increases heart rate: True Prepared, processed foods usually have high sodium: True Depression is common after a heart attack: True The statin medications lower cholesterol: True To control blood pressure, lower the amount of sodium: True If someone gets chest discomfort during walking: False Transfats are partially hydrogenated vegetable oils: True Sleep apnea that is not treated increases the risk: False To control cholesterol, one should become a vegetarian: False Someone knows if he/she is exercising at the right level: True Diabetes cannot be prevented with exercise & health eating: True Stress is a large risk for heart attack: True A diet that can help lower blood pressure is rich in: True Total Score Total Correct Responses: 19 Self-Efficacy 6-Item Scale Initial Assessment: We would like to know how confident you are in doing certain activities. Please select your confidence level for: Fatigue Select Number: 5 Physical Discomfort or Pain Select Number: 5 Emotional Distress Select Number: 5 Other Symptoms or Health Problems Select Number: 5 Different Tasks and Activities Select Number: 5 Medication Select Number: 5 Total Score:: 5 Nutrition Survey Nutrition Survey Instructions Scoring Instructions Nutrition Survey Initial: Have you lost >10 lbs over the past 2 months without trying?: Yes Are you following a special diet at home for diabetes, low fat, or low salt?: Yes Are you interested in meeting with a dietitian for help understanding your diet?: Yes Do you eat less than 3 meals a day?: Yes Do you eat fatty meats (garcia, sausage, ribs, etc), fried foods, desserts, large amounts of salad dressings, margarine, butter, or cheese most days?: Yes Do you have food allergies? [Enter types in comment field]: No Do you eat in restaurants more than 3 times a week?: No Do you season food with salt, seasoning salt, or garlic salt?: No Do you used canned, boxed, frozen meals, or soups, seasoning packets?: Yes Total Score:: 6 Exercise - 30-day Assessment Physician Prescribed Exercise Modalities: Treadmill, Rower, Schwinn Aird[employer] AD-7, [employer] Stepper, [employer] Pro- II Ergometer and [employer] Lateral [place] Exercise - 60-day Assessment Physician Prescribed Exercise Modalities: Treadmill, Rower, [employer] AD-7, [employer] Stepper, [employer] Pro- II Ergometer and [employer] Lateral Leather Toggler Exercise - 90-day Assessment Physician Prescribed Exercise Modalities: Treadmill, Rower, Schwinn Airdyne AD-7, [employer] Stepper, SciFit Pro- II Ergometer and SciFit Lateral [place] Exercise - Final/Discharge Physician Prescribed Exercise Modalities: Treadmill, Rower, Schwinn Airdyne AD-7, [employer] Stepper, SciFit Pro- II Ergometer and SciFit Lateral Leather Toggler Frequency: 3x/week for 12 weeks [36 sessions] Intensity: 60-80% of age predicted maximum heart rate reserve METs - Progression 0.5-1.0 weekly:: 0.5-1.0 Current METSs:: 3 Target Heart Rate:: 85-106 Nutrition - 30-Day Assessment Weight Mgt (Other Care) Height: 5 ft 7.5 in Weight:: 146 lb BMI: 22.5 BMI (Report if calculated above): 22 Nutrition - 60-Day Assessment Weight Mgt (Other Care) Height: 5 ft 7.5 in Weight:: 146 lb BMI: 22.5 BMI (Report if calculated above): 22 Core - Final Assessment Hypertension Resting Blood Pressure:: 126/78 [place] [employer] Hypertension Guidelines Core - 60-Day Assessment Hypertension Resting Blood Pressure:: 126/78 [place] [employer] Hypertension Guidelines Psychosocial - 30-Day Assess Target Goals Target Goals Referral to Behavioral Health PS - Interventions: Yes: Referral to [facility] (Pt provided list of mental health resources in the area ) and Yes: Attend Stress Management Classes and No: Referral to Physician if PHQ-9 if score is 5-9: (Already working with her PCP in managing her mental health medications ) Psychosocial - 60-Day Assess Target Goals Target Goals Referral to Behavioral Health PS - Interventions: Yes: Referral to [facility] (Pt provided list of mental health resources in the area ) and Yes: Attend Stress Management Classes and No: Referral to Physician if PHQ-9 if score is 5-9: (Already working with her PCP in managing her mental health medications ) Psychosocial - 90-Day Assess Target Goals Target Goals Referral to Behavioral Health PS - Interventions: Yes: Referral to [facility] (Pt provided list of mental health resources in the area ) and Yes: Attend Stress Management Classes and No: Referral to Physician if PHQ-9 if score is 5-9: (Already working with her PCP in managing her mental health medications ) Psychosocial - Final Assessmen Target Goals Target Goals Psychosocial Test phq-9 Severity See PHQ-9 Score: 8 Referral to Behavioral Health PS - Interventions: Yes: Referral to [facility] (Pt provided list of mental health resources in the area ) and Yes: Attend Stress Management Classes and No: Referral to Physician if PHQ-9 if score is 5-9: (Already working with her PCP in managing her mental health medications ) Nutrition - 90-Day Assessment Weight Mgt (Other Care) Height: 5 ft 7.5 in Weight:: 146 lb BMI: 22.5 BMI (Report if calculated above): 22 Nutrition - Final Assessment Program Goals Patient has diagnosis of Hyperlipidemia (ICD E78)?: No Weight Mgt (Other Care) Height: 5 ft 7.5 in Weight:: 146 lb BMI: 22.5 BMI (Report if calculated above): 22
[2024-11-12 15:26] VITALS: BP 126/78; BMI 22.0; BMI 22.5
== END | disposition home or self-care (01) ==
LOC: CR 13:50
PROVIDERS: PCP Family Medicine; Referring Provider Internal Medicine Cardiovascular Disease; Visit Provider Internal Medicine Cardiovascular Disease
DX: I48.91 Unspecified atrial fibrillation (principal); I10 Essential (primary) hypertension; Z98.890 Other specified postprocedural states; I71.9 Aortic aneurysm of unspecified site, without rupture

== ENCOUNTER 2024-12-15 10:15 | Outpatient (RCR) | payer MEDICARE, SELFPAY ==
[2024-11-12 15:26] VITALS: BMI 22.5
--- NOTE | 2024-12-11 08:37 | PCM.CR.ITP ---
Exercise - Initial Assessment Visit Session #:: 9 Physician Prescribed Exercise Modalities: Treadmill, Schwinn Airdyne AD-7 and SciFit Stepper Nutrition - Initial Assessment Weight Mgt (Other Care) Height: 5 ft 7.5 in Weight:: 148 lb BMI: 22.8 Psychosocial - Initial Assess Referral to Behavioral Health PS - Interventions: Yes: Attend Stress Management Classes Exercise - 30-day Assessment Visit Date of Eval: 12/11/24 Session #:: 9 Physician Prescribed Exercise Modalities: Treadmill, Schwinn Airdyne AD-7 and SciFit Stepper Frequency: 3x/week for 12 weeks [36 sessions] Intensity: 60-80% of age predicted maximum heart rate reserve Duration: 30 - 45 minutes Current METSs:: .5-1.0 Target Heart Rate:: 84-106 Target RPE 12-16:: 12-16 Current RPE:: 11 Maximum Excercise HR:: 110 Resting Blood Pressure: 114/68 Maximum Exercise Blood Pressure: 124/80 EKG Type: A Fib inverted T waves noted Outcomes & Goals Goals:: Verbalizes understanding of THR, RPE & goal METS by session 6, Documents in home exercise log/reports 30 min aerobic 5 day/wk by DC and Demonstrates accurate pulse taking by DC Intervention & Plan Exercise Program Goals: Instruct on personal THR & RPE, Instruct on MET level & personal MET goal, Show patient to take own pulse /validate performance until accurate and Instruct on home exercise 30-day Reassessments 30 day Reassessments:: Met Physical Activity Home Exercise Physical Activity - Home Exercise: Safe Exercise, Warm-up, Self-monitoring, Cool-Down, Home Exercise > 30 min Daily and Sitting Time <3 hours/daily Outcomes & Goals Outcomes/Goals: Demonstrates correct Warm-up/exercise Cool-Down (S3) if = 2.5 METs, Verbalizes symptoms of exercise intolerance by Session 3 (S3) and Demonstrate safe equipment use (S3) & follows exercise prescrition (6) Intervention & Plan Plan/Intervention: Instruct warm-up & cool-down if exercising at > 2 METs, Instruct on symptoms of exercise intolerance & actions to take, Instruct & monitor on saf and Assess intial functional capacity & safety risk Comment: Pt warms up and cools down with minimal prompting, pt follows exercise pres 30-day Reassessments 30 day Reassessments:: Progressing Exercise - 60-day Assessment Physician Prescribed Exercise Modalities: Treadmill, Schwinn Airdyne AD-7 and SciFit Stepper Exercise - 90-day Assessment Physician Prescribed Exercise Modalities: Treadmill, Schwinn Airdyne AD-7 and SciFit Stepper Exercise - Final/Discharge Physician Prescribed Exercise Modalities: Treadmill, Schwinn Airdyne AD-7 and SciFit Stepper Nutrition - 30-Day Assessment Program Goals Nutrition Program Goals Patient has diagnosis of Hyperlipidemia (ICD E78)?: No Visit Date of Eval: 12/11/24 Session #:: 9 Cholesterol/Lipids (Other Core Measures) Determine presence & major risk factors that modify LDL goal: Cigarette smoking, Hypertension or hypertensive medication, Low HDL cholesterol <40 mg/dL*, Family history of premature CHD in Male < 55 years: female <65 yearsFa and Age men > 45 years; women >/= 55 years Outcomes/Goals: Pt IDs own risk factors & lifestyle modifications by Session 10, Verbalizes symptoms of angina & response by session 3., Pt independently manages and Other Additional Outcomes/Goals: Intervention/Plan: Advocate for lipid panel cholesterol medication if applicable, Instruct on personal lipid levels & lipid goals/NCEP guidelines and Instruct on cholesterol 30-day Reassessments:: Met Diabetes (Other Core Measures) Diabetes Type: Not Applicable Weight Mgt (Other Care) Height: 5 ft 7.5 in Weight:: 148 lb BMI: 22.8 Diagnosis Overweight/Obesity BMI> 30% ICD-10 E66: No Diagnosis High BMI/Morbid Obesity BMI> 35% ICD-10 Z68: No Outcomes/Goals: Pt sets, maintains & shows weight loss goal & trend during rehab Intervention/Plan: Instruct on ideal BMI & set weight loss goal w/patient, Assist pt to ID & incorporate diet changes for weight loss by S9, Refer to Structured Weight Loss program as appropriate and Encourage goal of using 250-300dcal per session for weight loss 30 day Reassessments:: Met Healthy Eating Habits Will attend diet classes:: Yes Outcomes/Goals:: Consume diet rich in vegs,fruits,whole grain/high fiber,fish,lean meat and Limit sat/trans fats,cholesterol & added salts & sugars Intervention/Plan:: Assess current eating habits 30-day Reassessments:: Progressing Reassessment Notes & Comments:: Pt to attend diet classes while in rehab. Education Gave educational materials for:: Signs & symptoms of hypoglycemia, Signs & symptoms of hyperglycemia, Relate diabetes to coronary artery disease and Healthy eating Nutrition - 60-Day Assessment Weight Mgt (Other Care) Height: 5 ft 7.5 in Weight:: 148 lb BMI: 22.8 Core - 30-Day Assessment Visit Date of Eval: 12/11/24 Session #:: 9 Medication Compliance Preventative Medication(s):: Beta josh and Eliquis H/O mental health issues: depression, anxiety, or addiction?: Yes Doesn’t believe in the benefits of treatment?: No Believes medications are unnecessary or harmful?: No Has a concern about medication side effects?: No Expresses concern over the cost of medications?: No Outcomes/Goals: Verbalizes medications,desired effect & common side effects @ DC, Pt self-reports following medication regimen and Keeps card in wallet w/medications listed by DC Interventions/plans: Instruct on medication effects & side effects, Review medication list w/patient every two weeks and Instruct importance of taking meds as ordered & assist problem solving 30-day Reassessments:: Progressing Reassessment Notes & Comments:: Pt taking all medications as prescribed. Tobacco Use Tobacco Use: Non-smoker Hypertension Hypertension Diagnosis:: Hypertension ICD-10 I10 Resting Blood Pressure:: 114/68 [place] [employer] Hypertension Guidelines Peak Exercise Blood Pressure:: 124/80 Outcomes/Goals: Able to verbalize/achieve optimal blood pressure <130/80 and Incorporates diet changes & exercise for blood pressure control by DC Interventions/plan: Instruct on optimal blood pressure, hypertension & medications and Instruct on effects of sodium, alcohol, stress, exercise &hypertension 30 day Reassessments:: Met Reassessment Notes & Comments:: PT BP WNL Tobacco Cessation Referral Education Schedule Given:: Yes Psychosocial - 30-Day Assess VIsit Date of Eval: 12/11/24 Session #:: 9 History of previous Mental disease:: Yes History of Emotional Disorders: Anxious (Pt currently working with her PCP to transition back to her normal medications post surgery, pt denies any psychosocial needs at this time, pt has for support at home. ) and Depression Psychosocial Test Tool Used:: PHQ-9 Questionnaire phq-9 Severity See PHQ-9 Score: 8 Referral to Behavioral Health PS - Interventions: Yes: Attend Stress Management Classes Outcomes/Goals: See list Psychosocial Outcomes/Goals:: ID's personal stressors & 2 strategies to manage stress by discharge Intervention/Plan: See List Interventions/Plan:: Assess stressors,coping strategies & signs of derpression on admission, Instruct/assist pt to develop coping & personal stress Mgt strategies, Refer to Behavioral Health if appropriate, Refer to Physician if appropriate and Instruct patient to recognize signs & symptoms of depression 30-day Reassessments: 30 day Reassessments:: Progressing Reassessment Notes & Comments:: Pt currently working with her PCP to transition back to her normal medications post surgery, pt denies any psychosocial needs at this time, pt has for support at home. Psychosocial - 60-Day Assess Referral to Behavioral Health PS - Interventions: Yes: Attend Stress Management Classes Outcomes/Goals: See list Psychosocial Outcomes/Goals:: ID's personal stressors & 2 strategies to manage stress by discharge Psychosocial - 90-Day Assess Referral to Behavioral Health PS - Interventions: Yes: Attend Stress Management Classes Psychosocial - Final Assessmen Referral to Behavioral Health PS - Interventions: Yes: Attend Stress Management Classes Nutrition - 90-Day Assessment Weight Mgt (Other Care) Height: 5 ft 7.5 in Weight:: 148 lb BMI: 22.8 Nutrition - Final Assessment Weight Mgt (Other Care) Height: 5 ft 7.5 in Weight:: 148 lb BMI: 22.8
[2024-12-11 08:50] VITALS: BP 114/68; BMI 22.8
== END 2024-12-16 23:59 ==
LOC: CR 10:15
PROVIDERS: PCP Family Medicine; Referring Provider Internal Medicine Cardiovascular Disease; Visit Provider Internal Medicine Cardiovascular Disease
DX: I71.9 Aortic aneurysm of unspecified site, without rupture (principal); I48.91 Unspecified atrial fibrillation; I51.7 Cardiomegaly
CPT/HCPCS: 93798

== ENCOUNTER 2025-01-16 10:15 | Outpatient (RCR) | payer MEDICARE, SELFPAY ==
[2024-12-11 08:50] VITALS: BMI 22.8
--- NOTE | 2025-01-08 07:57 | CR.ITP_ITS ---
Exercise - Initial Assessment Physician Prescribed Exercise Modalities: Treadmill, Schwinn Airdyne AD-7 and SciFit Stepper Nutrition - Initial Assessment Weight Mgt (Other Care) Height: 5 ft 7.5 in Weight:: 145 lb 8 oz BMI: 22.4 Core - Initial Assessment Hypertension Resting Blood Pressure:: 128/84 [place] [employer] Hypertension Guidelines Psychosocial - Initial Assess Referral to Behavioral Health PS - Interventions: Yes: Attend Stress Management Classes Exercise - 30-day Assessment Physician Prescribed Exercise Modalities: Treadmill, Schwinn Airdyne AD-7 and SciFit Stepper Exercise - 60-day Assessment Visit Date of Eval: 01/08/25 Session #:: 21 Physician Prescribed Exercise Modalities: Treadmill, Schwinn Airdyne AD-7 and SciFit Stepper Frequency: 3x/week for 12 weeks [36 sessions] Intensity: 60-80% of age predicted maximum heart rate reserve Duration: 30 - 45 minutes Current METSs:: 5 Target Heart Rate:: 84-106 Current RPE:: 12 Maximum Excercise HR:: 142 Resting Blood Pressure: 116/76 Maximum Exercise Blood Pressure: 146/70 EKG Type: Afib w/ rare PVC's. Inverted Twave Outcomes & Goals Goals:: Verbalizes understanding of THR, RPE & goal METS by session 6, Documents in home exercise log/reports 30 min aerobic 5 day/wk by DC, Demonstrates accurate pulse taking by DC and Other additional outcome/goals: see below Intervention & Plan Exercise Program Goals: Instruct on personal THR & RPE, Instruct on MET level & personal MET goal, Show patient to take own pulse /validate performance until accurate, Instruct on home exercise and Other additional plan/int Physical Activity Home Exercise Physical Activity - Home Exercise: Safe Exercise, Warm-up, Self-monitoring, Cool-Down, Home Exercise > 30 min Daily and Sitting Time <3 hours/daily Outcomes & Goals Outcomes/Goals: Demonstrates correct Warm-up/exercise Cool-Down (S3) if = 2.5 METs, Verbalizes symptoms of exercise intolerance by Session 3 (S3), Demonstrate safe equipment use (S3) & follows exercise prescrition (6) and Other: See below Intervention & Plan Plan/Intervention: Instruct warm-up & cool-down if exercising at > 2 METs, In struct on symptoms of exercise intolerance & actions to take, Instruct & monitor on saf, Assess intial functional capacity & safety risk and Other See below 30-day Reassessments 30 day Reassessments:: Progressing Reassessment Notes & Comments:: Proper warm up and cool down demonstrated and explained to pt. Pt is able to return demonstration in their daily sessions. Exercise - 90-day Assessment Physician Prescribed Exercise Modalities: Treadmill, Schwinn Airdyne AD-7 and SciFit Stepper Exercise - Final/Discharge Physician Prescribed Exercise Modalities: Treadmill, Schwinn Airdyne AD-7 and SciFit Stepper Nutrition - 30-Day Assessment Weight Mgt (Other Care) Height: 5 ft 7.5 in Weight:: 145 lb 8 oz BMI: 22.4 Nutrition - 60-Day Assessment Program Goals Nutrition Program Goals Patient has diagnosis of Hyperlipidemia (ICD E78)?: No Visit Date of Eval: 01/08/25 Session #:: 21 Cholesterol/Lipids (Other Core Measures) Determine presence & major risk factors that modify LDL goal: Cigarette smoking, Hypertension or hypertensive medication, Low HDL cholesterol <40 mg/dL*, Family history of premature CHD in Male < 55 years: female <65 yearsFa and Age men > 45 years; women >/= 55 years Outcomes/Goals: Pt IDs own risk factors & lifestyle modifications by Session 10, Verbalizes symptoms of angina & response by session 3., Pt independently manages and Other Additional Outcomes/Goals: Intervention/Plan: Advocate for lipid panel cholesterol medication if applicable, Instruct on personal lipid levels & lipid goals/NCEP guidelines, Instruct on cholesterol and Other additional plan/int 30-day Reassessments:: Met Reassessment Notes & Comments:: Pt seen 12/24 by our data analysis intern. Diabetes (Other Core Measures) Diabetes Type: Not Applicable Weight Mgt (Other Care) Height: 5 ft 7.5 in Weight:: 145 lb 8 oz BMI: 22.4 Diagnosis Overweight/Obesity BMI> 30% ICD-10 E66: No Diagnosis High BMI/Morbid Obesity BMI> 35% ICD-10 Z68: No Outcomes/Goals: Pt sets, maintains & shows weight loss goal & trend during rehab and Other additional outcomes/goals Intervention/Plan: Instruct on ideal BMI & set weight loss goal w/patient, Assist pt to ID & incorporate diet changes for weight loss by S9, Refer to Structured Weight Loss program as appropriate, Encourage goal of using 250- 300dcal per session for weight loss and Other additional plan/interventions Healthy Eating Habits Will attend diet classes:: Yes Outcomes/Goals:: Consume diet rich in vegs,fruits,whole grain/high fiber,fish,lean meat, Limit sat/trans fats,cholesterol & added salts & sugars and Other additional outcome/goals: Intervention/Plan:: Assess current eating habits and Other Additional plan/interventions 30-day Reassessments:: Progressing Reassessment Notes & Comments:: Pt is at a healthy weight. Pt is scheduled to attend nutrition classes with our data analysis intern. Heart healthy low sodium diet encouraged. Education Gave educational materials for:: Signs & symptoms of hypoglycemia, Signs & symptoms of hyperglycemia, Relate diabetes to coronary artery disease and Healthy eating Core - Final Assessment Hypertension Resting Blood Pressure:: 128/84 [place] [employer] Hypertension Guidelines Core - 60-Day Assessment Visit Date of Eval: 01/08/25 Session #:: 21 Medication Compliance Preventative Medication(s):: Beta josh and Eliquis H/O mental health issues: depression, anxiety, or addiction?: Yes Doesn’t believe in the benefits of treatment?: No Believes medications are unnecessary or harmful?: No Has a concern about medication side effects?: No Expresses concern over the cost of medications?: No Outcomes/Goals: Verbalizes medications,desired effect & common side effects @ DC, Pt self-reports following medication regimen, Keeps card in wallet w/medications listed by DC and Other additional outcome/goals: Interventions/plans: Instruct on medication effects & side effects, Review medication list w/patient every two weeks, Instruct importance of taking meds as ordered & assist problem solving and Other additional Tobacco Use Tobacco Use: Non-smoker Hypertension Resting Blood Pressure:: 116/76 Resting Blood Pressure:: 128/84 [place] [employer] Hypertension Guidelines Peak Exercise Blood Pressure:: 146/70 Outcomes/Goals: Able to verbalize/achieve optimal blood pressure <130/80, In corporates diet changes & exercise for blood pressure control by DC and Other additional outcomes/goals Interventions/plan: Instruct on optimal blood pressure, hypertension & m edications, Instruct on effects of sodium, alcohol, stress, exercise &hypertension and Other additional plan/interventions 30 day Reassessments:: Progressing Reassessment Notes & Comments:: Pt's BP's are within AHA normal limits. Will continue to monitor and report to pt's physician if necessary. Tobacco Cessation Referral Smoking Cessation Referral:: No Individual Education/Counseling:: No Education Schedule Given:: Yes Psychosocial - 30-Day Assess VIsit Date of Eval: 01/08/25 Session #:: 21 History of previous Mental disease:: Yes History of Emotional Disorders: Anxious and Depression (Pt is transitioning back to her normal meds post op. Pt denies any psychosocial issues at this time.) Psychosocial Test Tool Used:: [employer] QOL Cardiac and PHQ-9 Questionnaire phq-9 Severity See PHQ-9 Score: 8 Referral to Behavioral Health PS - Interventions: Yes: Attend Stress Management Classes Outcomes/Goals: See list Psychosocial Outcomes/Goals:: ID's personal stressors & 2 strategies to manage stress by discharge and Other Additional outcome/goals: Intervention/Plan: See List Interventions/Plan:: Assess stressors,coping strategies & signs of derpression on admission, Instruct/assist pt to develop coping & personal stress Mgt strategies, Refer to Behavioral Health if appropriate, Refer to Physician if appropriate, Instruct patient to recognize signs & symptoms of depression, Instruct patient to recog and Other additional plan/intervention 30-day Reassessments: 30 day Reassessments:: Progressing Reassessment Notes & Comments:: Pt is transitioning back to her normal meds post op. Pt denies any psychosocial issues at this time. Pt to attend stress management class. Will reassess every 30 days. Psychosocial - 60-Day Assess Referral to Behavioral Health PS - Interventions: Yes: Attend Stress Management Classes Outcomes/Goals: See list Psychosocial Outcomes/Goals:: ID's personal stressors & 2 strategies to manage stress by discharge and Other Additional outcome/goals: Psychosocial - 90-Day Assess Referral to Behavioral Health PS - Interventions: Yes: Attend Stress Management Classes Psychosocial - Final Assessmen Referral to Behavioral Health PS - Interventions: Yes: Attend Stress Management Classes Nutrition - 90-Day Assessment Weight Mgt (Other Care) Height: 5 ft 7.5 in Weight:: 145 lb 8 oz BMI: 22.4 Nutrition - Final Assessment Weight Mgt (Other Care) Height: 5 ft 7.5 in Weight:: 145 lb 8 oz BMI: 22.4
[2025-01-08 08:02] VITALS: BP 116/76
[2025-01-08 08:14] VITALS: BP 116/76; BP 128/84; BMI 22.4
== END 2025-01-16 23:59 ==
LOC: CR 10:15
PROVIDERS: PCP Family Medicine; Referring Provider Internal Medicine Cardiovascular Disease; Visit Provider Internal Medicine Cardiovascular Disease
DX: I71.9 Aortic aneurysm of unspecified site, without rupture (principal); I48.91 Unspecified atrial fibrillation; I51.7 Cardiomegaly
CPT/HCPCS: 93798; 97802

== ENCOUNTER 2025-02-11 10:15 | Outpatient (RCR) | payer MEDICARE, SELFPAY ==
[2025-01-08 08:14] VITALS: BMI 22.4
--- NOTE | 2025-02-03 09:06 | PCM.CR.ITP ---
Documented by User: Shauna Monsalve 02/03/25 10:02 Exercise - Initial Assessment Physician Prescribed Exercise Modalities: Treadmill, Schwinn Airdyne AD-7 and SciFit Stepper Nutrition - Initial Assessment Weight Mgt (Other Care) Height: 5 ft 7 in Weight:: 142 lb BMI: 22.2 Psychosocial - Initial Assess Referral to Behavioral Health PS - Interventions: Yes: Attend Stress Management Classes and No: Referral to Behavioral Health if PHQ-9 score >9:, No: Referral to [facility] and No: Referral to Physician if PHQ-9 if score is 5-9: Exercise - 30-day Assessment Physician Prescribed Exercise Modalities: Treadmill, Schwinn Airdyne AD-7 and SciFit Stepper Exercise - 60-day Assessment Physician Prescribed Exercise Modalities: Treadmill, Schwinn Airdyne AD-7 and SciFit Stepper Exercise - 90-day Assessment Visit Date of Eval: 02/03/25 Session #:: 32 Physician Prescribed Exercise Modalities: Treadmill, Schwinn Airdyne AD-7 and SciFit Stepper Frequency: 3x/week for 12 weeks [36 sessions] Intensity: 60-80% of age predicted maximum heart rate reserve Duration: 30 - 45 minutes Current METSs:: 6.1 Target Heart Rate:: 84-113 Current RPE:: 11-12 Maximum Excercise HR:: 114 Resting Blood Pressure: 124/80 Maximum Exercise Blood Pressure: 126/80 EKG Type: Afib with rare PVC, inverted t waves Outcomes & Goals Goals:: Verbalizes understanding of THR, RPE & goal METS by session 6, Documents in home exercise log/reports 30 min aerobic 5 day/wk by DC, Demonstrates accurate pulse taking by DC and Other additional outcome/goals: see below Intervention & Plan Exercise Program Goals: Instruct on personal THR & RPE, Instruct on MET level & personal MET goal, Show patient to take own pulse /validate performance until accurate, Instruct on home exercise and Other additional plan/int Physical Activity Home Exercise Physical Activity - Home Exercise: Safe Exercise, Warm-up, Self-monitoring, Cool-Down, Home Exercise > 30 min Daily and Sitting Time <3 hours/daily Outcomes & Goals Outcomes/Goals: Demonstrates correct Warm-up/exercise Cool-Down (S3) if = 2.5 METs, Verbalizes symptoms of exercise intolerance by Session 3 (S3), Demonstrate safe equipment use (S3) & follows exercise prescrition (6) and Other: See below Intervention & Plan Plan/Intervention: Instruct warm-up & cool-down if exercising at > 2 METs, Instruct on symptoms of exercise intolerance & actions to take, Instruct & monitor on saf, Assess intial functional capacity & safety risk and Other See below 30-day Reassessments 30 day Reassessments:: Progressing Reassessment Notes & Comments:: Pt is progressing with exercise intensity. Will continue to encourage and increase intensity as tolerated. Exercise - Final/Discharge Physician Prescribed Exercise Modalities: Treadmill, Schwinn Airdyne AD-7 and SciFit Stepper Nutrition - 30-Day Assessment Weight Mgt (Other Care) Height: 5 ft 7 in Weight:: 142 lb BMI: 22.2 Nutrition - 60-Day Assessment Weight Mgt (Other Care) Height: 5 ft 7 in Weight:: 142 lb BMI: 22.2 Core - 30-Day Assessment Hypertension [place] [employer] Hypertension Guidelines Reassessment Notes & Comments:: Pt has BPs within normal AHA limits. Will continue to monitor and report to pt's physician if necessary. Core - Final Assessment Hypertension [place] [employer] Hypertension Guidelines Reassessment Notes & Comments:: Pt has BPs within normal AHA limits. Will continue to monitor and report to pt's physician if necessary. Core - 90 Day Assessment Visit Date of Eval: 02/03/25 Session #:: 32 Medication Compliance Preventative Medication(s):: Beta josh and Eliquis H/O mental health issues: depression, anxiety, or addiction?: Yes Doesn’t believe in the benefits of treatment?: No Believes medications are unnecessary or harmful?: No Has a concern about medication side effects?: No Expresses concern over the cost of medications?: No Outcomes/Goals: Verbalizes medications,desired effect & common side effects @ DC, Pt self-reports following medication regimen, Keeps card in wallet w/medications listed by DC and Other additional outcome/goals: Interventions/plans: Instruct on medication effects & side effects, Review medication list w/patient every two weeks, Instruct importance of taking meds as ordered & assist problem solving and Other additional Tobacco Use Tobacco Use: Non-smoker Hypertension Hypertension Diagnosis:: Hypertension ICD-10 I10 Resting Blood Pressure:: 124/80 [place] [employer] Hypertension Guidelines Peak Exercise Blood Pressure:: 126/80 Outcomes/Goals: Able to verbalize/achieve optimal blood pressure <130/80, Incorporates diet changes & exercise for blood pressure control by DC and Other additional outcomes/goals Interventions/plan: Instruct on optimal blood pressure, hypertension & medications, Instruct on effects of sodium, alcohol, stress, exercise &hypertension and Other additional plan/interventions 30 day Reassessments:: Progressing Reassessment Notes & Comments:: Pt has BPs within normal AHA limits. Will continue to monitor and report to pt's physician if necessary. Tobacco Cessation Referral Smoking Cessation Referral:: No Individual Education/Counseling:: No Education Schedule Given:: Yes Psychosocial - 30-Day Assess Referral to Behavioral Health PS - Interventions: Yes: Attend Stress Management Classes and No: Referral to Behavioral Health if PHQ-9 score >9:, No: Referral to [facility] and No: Referral to Physician if PHQ-9 if score is 5-9: Psychosocial - 60-Day Assess Referral to Behavioral Health PS - Interventions: Yes: Attend Stress Management Classes and No: Referral to Behavioral Health if PHQ-9 score >9:, No: Referral to [facility] and No: Referral to Physician if PHQ-9 if score is 5-9: Psychosocial - 90-Day Assess VIsit Date of Eval: 02/03/25 Session #:: 32 History of previous Mental disease:: Yes History of Emotional Disorders: Anxious and Depression Psychosocial Test Tool Used:: [employer] QOL Cardiac and PHQ-9 Questionnaire phq-9 Severity See PHQ-9 Score: 8 Referral to Behavioral Health PS - Interventions: Yes: Attend Stress Management Classes and No: Referral to Behavioral Health if PHQ-9 score >9:, No: Referral to [facility] and No: Referral to Physician if PHQ-9 if score is 5-9: Outcomes/Goals: See list Psychosocial Outcomes/Goals:: ID's personal stressors & 2 strategies to manage stress by discharge and Other Additional outcome/goals: Intervention/Plan: See List Interventions/Plan:: Assess stressors,coping strategies & signs of derpression on admission, Instruct/assist pt to develop coping & personal stress Mgt strategies, Refer to Behavioral Health if appropriate, Refer to Physician if appropriate, Instruct patient to recognize signs & symptoms of depression, Instruct patient to recog and Other additional plan/intervention 30-day Reassessments: 30 day Reassessments:: Progressing Reassessment Notes & Comments:: Pt attended stress management class. Pt denies any psychosocial issues at this time. Will continue to monitor and assess. Psychosocial - Final Assessmen Referral to Behavioral Health PS - Interventions: Yes: Attend Stress Management Classes and No: Referral to Behavioral Health if PHQ-9 score >9:, No: Referral to [facility] and No: Referral to Physician if PHQ-9 if score is 5-9: Nutrition - 90-Day Assessment Program Goals Nutrition Program Goals Patient has diagnosis of Hyperlipidemia (ICD E78)?: No Visit Date of Eval: 02/03/25 Session #:: 32 Cholesterol/Lipids (Other Core Measures) Determine presence & major risk factors that modify LDL goal: Cigarette smoking, Hypertension or hypertensive medication, Low HDL cholesterol <40 mg/dL*, Family history of premature CHD in Male < 55 years: female <65 yearsFa and Age men > 45 years; women >/= 55 years Outcomes/Goals: Pt IDs own risk factors & lifestyle modifications by Session 10, Verbalizes symptoms of angina & response by session 3., Pt independently manages and Other Additional Outcomes/Goals: Intervention/Plan: Advocate for lipid panel cholesterol medication if applicable, Instruct on personal lipid levels & lipid goals/NCEP guidelines, Instruct on cholesterol and Other additional plan/int Referral to dietitian:: Yes Diabetes (Other Core Measures) Diabetes Type: Not Applicable Weight Mgt (Other Care) Height: 5 ft 7 in Weight:: 142 lb BMI: 22.2 Diagnosis Overweight/Obesity BMI> 30% ICD-10 E66: No Diagnosis High BMI/Morbid Obesity BMI> 35% ICD-10 Z68: No Outcomes/Goals: Pt sets, maintains & shows weight loss goal & trend during rehab and Other additional outcomes/goals Intervention/Plan: Instruct on ideal BMI & set weight loss goal w/patient, Assist pt to ID & incorporate diet changes for weight loss by S9, Refer to Structured Weight Loss program as appropriate, Encourage goal of using 250-300dcal per session for weight loss and Other additional plan/interventions Reassessment Notes & Comments:: Pt has met with hospital physician advisor. Low sodium heart healthy diet encouraged. Nutrition score of 6 . Healthy Eating Habits Will attend diet classes:: Yes Outcomes/Goals:: Consume diet rich in vegs,fruits,whole grain/high fiber,fish,lean meat, Limit sat/trans fats,cholesterol & added salts & sugars and Other additional outcome/goals: Intervention/Plan:: Assess current eating habits and Other Additional plan/interventions 30-day Reassessments:: Progressing Reassessment Notes & Comments:: Risk factors discussed with pt. Pt has met with hospital physician advisor 1 on 1. Education Gave educational materials for:: Signs & symptoms of hypoglycemia, Signs & symptoms of hyperglycemia, Relate diabetes to coronary artery disease and Healthy eating Nutrition - Final Assessment Weight Mgt (Other Care) Height: 5 ft 7 in Weight:: 142 lb BMI: 22.2 Documented by User: Dr. Pete Abbott MD 02/03/25 10:57 Nutrition - Initial Assessment Weight Mgt (Other Care) BMI: 22.2 Nutrition - 30-Day Assessment Weight Mgt (Other Care) BMI: 22.2 Nutrition - 60-Day Assessment Weight Mgt (Other Care) BMI: 22.2 Nutrition - 90-Day Assessment Weight Mgt (Other Care) BMI: 22.2 Nutrition - Final Assessment Weight Mgt (Other Care) BMI: 22.2
[2025-02-03 09:18] VITALS: BP 124/80
[2025-02-03 09:34] VITALS: BP 124/80
[2025-02-03 10:01] VITALS: BP 124/80
[2025-02-03 10:57] VITALS: BMI 22.2
== END 2025-02-15 23:59 ==
LOC: CR 10:15
PROVIDERS: PCP Family Medicine; Referring Provider Internal Medicine Cardiovascular Disease; Visit Provider Internal Medicine Cardiovascular Disease
DX: I71.9 Aortic aneurysm of unspecified site, without rupture (principal); I48.91 Unspecified atrial fibrillation; I51.7 Cardiomegaly
CPT/HCPCS: 93798